=== PATIENT | male | born 1985 | race African-American/Black ===

== ENCOUNTER 2020-09-24 11:47 | Emergency (ER) | payer BC ==
[~2020-09-24] VITALS: Ht 188 cm; Wt 124.7 kg
[~2020-09-24 11:47] MED LIST: AMOXICILLIN 50500 MG PO; ASPIRIN EC325 M1; NOHOMEMEDICATIONS; NORCO 5-325 TA1 EACH PO; ONDANSETRON HCL4 M2 PO; PENICILLIN V P500 MG PO; PROMETHAZINE/C118 ML PO
[2020-09-24] MEDS ORDERED: PREDNISONE 20 M20 M1 PO (12:12)
[2020-09-24 13:00] VITALS: BP 138/92
== END 2020-09-24 13:00 | disposition home or self-care (01) ==
LOC: M.ERS 11:47
DX: M79.641 Pain in right hand (principal)